=== PATIENT | female | born 1985 | race Caucasian/White ===

== ENCOUNTER 2016-12-30 09:52 | Emergency (ER) | payer OTHER ==
[~2016-12-30] VITALS: Ht 170.2 cm; Wt 111.4 kg
[2016-12-30 09:53] VITALS: BP 158/96; PULSE 87; RESP 16; O2SAT 100
[2016-12-30] MEDS ORDERED: Promethazine Inj 25 MG in 0.9% Sodium Chloride 50 ML IV ONE (10:05)
--- NOTE | 2016-12-30 10:17 | ED.REPORT ---
HPI-Headache Date of Service Dec 30, 2016 ED Provider: Carrillo Sheffield MD Pt is an otherwise healthy 31 year old female who presents to the ED complaining of intermittent headache onset 1 week ago. She c/o associated neck pain, bilateral eye pain, dizziness, spinning sensation, lightheadedness, mild numbness in fingers bilaterally, mild bilateral ear pain, vomiting, nausea, and chills. She denies fever, difficulty walking, and any other symptoms. Her pain is exacerbated with light and loud, sudden noises. She denies recent falls. Pt reports that she had difficulty sleeping secondary to the pain. Per pt, her headache was gradual in onset. Pt states that her nausea has only been present for the last 3 days. Her mother has a history of a brain tumor. Nursing Notes Stated Complaint: MIGRAINE Chief Complaint: Headache Nursing Notes Reviewed: Yes ([employer] not reconciled) Allergies: Coded Allergies: amoxicillin (Verified Adverse Reaction, Severe, Nausea,Vomiting, 12/30/16) Scheduled PRN Hydrocodone-Acetaminophen 5-325 mg (Hydrocodone-Acetaminophen 5-325 mg) 1 Each Tablet 1 TABLET PO Q4H PRN PRN For Pain Promethazine (Promethazine) 25 Mg Tablet 25 MG PO Q4H PRN PRN headache or nausea General Time Seen by MD: 10:05 Chief Complaint Headache Hx Obtained From: Patient Arrived By: Walk-in Sudden in Onset?: No Onset Occurred: 1 week ago Symptom Duration: Intermittent Location: : Retro orbital Quality: Painful Severity: Current: Moderate Severity: Maximum: Moderate Recent Healthcare: No recent doctor visit, No recent hospitalization Similar Sx Previous: No Past Medical History Past Medical History None reported - healthy Past Surgical History Reports: Appendectomy Family History Mother w/brain tumor Reports: Diabetes mellitus Smoking History Unknown if Ever Smoker Social History Alcohol Use: "Social" Drug Use: Denies drug use Other Social History: Good social support Ambulatory Status Independent Review of Systems Constitutional: Reports: Chills, Denies: Fever Eyes: Reports: Eye pain bilateral Ears / Nose / Throat: Reports: Earache bilateral GI: Reports: Nausea, Vomiting Musculoskeletal: Reports: Neck pain Neurologic: Reports: Dizziness, Headache, Lightheaded, Numbness (mildly in fingers), Spinning sensation, Denies: Problem walking Complete sys rev & neg: except as marked. Physical Exam Initial Vital Signs Vital Signs (First) Date Time Temp Pulse Resp B/P Pulse Ox O2 Delivery O2 Flow Rate FiO2 12/30/16 09:53 36.3 87 16 158/96 100 Room Air Initial VS: Reviewed, Vital signs normal (mild HTN) Respiratory: Breath sounds normal, Clear to auscultation, No respiratory distress Cardiovascular: Regular rate & rhythm, Heart sounds normal, Intact distal pulses Abdomen / GI: Soft, Non-tender Extremities: Vascular intact, Neuro intact Skin: Warm, Dry, No cyanosis Psychiatric: Mood/affect normal, Behavior normal General/Constitutional: Awake, Alert She is sitting in a darkened room wearing sunglasses and holding still. Head / Eyes: Atraumatic, Normocephalic, No nystagmus Neck: Atraumatic, Full range of motion Neurologic: Oriented X3, Speech NL, CN II - XII intact Interpretation & Diagnostics Lab Results Interpretation Result Diagram: 12/30/16 1021 12/30/16 1021 Test 12/30/16 10:21 12/30/16 11:50 12/30/16 14:19 12/30/16 14:20 White Blood Count 4.6th/mm3 (3.8-10.1) Red Blood Count 4.60mil/mm3 (3.90-5.20) Hemoglobin 13.9g/dL (12.0-15.6) Hematocrit 40.0% (35.0-46.0) Mean Corpuscular Volume 87.0fL (81-100) Mean Corpuscular Hemoglobin 30.2pg (27.0-35.0) Mean Corpuscular Hemoglobin Concent 34.8% (32.0-37.0) Red Cell Distribution Width 11.9% (12.3-15.4) Platelet Count 238bil/L (150-400) Neutrophils (%) (Auto) 55.0% (40-74) Lymphocytes (%) (Auto) 33.2% (14-46) Monocytes (%) (Auto) 8.6% (4-12) Eosinophils (%) (Auto) 2.6% (0-5) Basophils (%) (Auto) 0.4% (0-3) Prothrombin Time 10.0sec (8.1-12.5) Prothromb Time International Ratio 0.94ratio Activated Partial Thromboplast Time 28.3sec (22.8-33.0) Sodium Level 141mEq/L (134-144) Potassium Level 4.0mEq/L (3.5-5.2) Chloride Level 105mEq/L (97-108) Carbon Dioxide Level 21mmol/L (18-29) Blood Urea Nitrogen 10mg/dL (6-20) Creatinine 0.66mg/dL (0.57-1.00) Estimat Glomerular Filtration Rate 152mL/min (>59) Glucose Level 100mg/dL (60-99) Calcium Level 9.6mg/dL (8.5-10.1) Total Bilirubin 0.3mg/dL (0.0-1.2) Aspartate Amino Transf (AST/SGOT) 29U/L (0-50) Alanine Aminotransferase (ALT/SGPT) 44U/L (0-32) Alkaline Phosphatase 65U/L (25-150) Total Protein 8.0g/dL (6.4-8.4) Albumin 4.4g/dL (3.4-5.0) Human Chorionic Gonadotropin, Qual 0.500 (Negative) Hold Urine Received (Received) CSF Glucose 59mg/dL (45-90) CSF Total Protein 39mg/dL (15-45) CSF Appearance Clear (CLEAR) CSF Color Colorless (COLORLESS) CSF WBC 5/mm3 (0-5) CSF RBC 0/mm3 CSF Mononuclear WBCs % CSF Polynuclear WBCs % CSF Other Cells Lab Results Interpretation: CBC normal CMP normal CSF normal negative CT Head Interpretation IMPRESSION: Negative head CT. No acute intracranial hemorrhage. Dictated by: Wicho Dawson M.D. on 12/30/2016 at 10:51 Study: Head CT no contrast Interpretation / Wet Read by: Interpret - Radiologist Procedures Lumbar Puncture Time: 13:42 Procedure Performed by: ED physician Consent / Setup / Site Prep: Informed consent provided, Consent from patient , Time-out performed, Hand hygiene observed, Stand sterile technique, Sterile drapes applied, Patient sitting up Skin Preparation Agent: Betadine Local Anesthesia: Bupivacaine 0.5% Inserted Needle at: L4 L5 Second Attempt at: L4 L5 Post-Procedure / Complications: Antibiotic oint applied, Dressing applied, No complications, Tolerated procedure well, Patient stable Re-Eval/Medical Decision Med Decision/Clinical Course This is a 31-year-old female presents with a 7 days of worsening headache, slow onset that is now the worst of her life. She was referred in for further evaluation by urgent care. No relief from OTC meds, no history of trauma, no clear infectious symptoms there is a little bit of neck soreness. She has had no rashes or exanthems, ill contact or travel There is positive photophobia, positive nausea and vomiting. On exam she sitting in a darkened room wearing sunglasses, but has no focal deficits. She does appear comfortable. A CT of the brain at this point was indicated, and was obtained and negative. Informed consent was obtained and all lumbar puncture form that revealed normal CSF without signs of subarachnoid or meningitis such as viral etiology. She received promethazine, Benadryl, Toradol, and ultimately a small dose of Dilaudid-ultimately symptoms markedly improved and resolved. Plan dangerous etiology has not been established. Discharge promethazine, and I written a prescription for #10 hydrocodone for when necessary use as well after discussion with the patient. She is discharged in good condition. Routine precautions were reviewed. Source of Hx: Old records Re-Evaluation/Progress #1: Time of Eval: 13:12 Re-Evaluation/Progress Note: Pt rechecked. Informed pt of need for lumbar puncture. Pt agrees with plan for lumbar punture. All questions addressed. Re-Evaluation/Progress #2: Time of Eval: 13:42 Re-Evaluation/Progress Note: Pt rechecked. Performed lumbar puncture with pt's consent. All questions addressed. Re-Evaluation/Progress #3: Time of Eval: 15:51 Re-Evaluation/Progress Note: Pt rechecked. Informed pt of plan for discharge. Pt understands and agrees with plan for discharge. F/U instructions and RTER warnings given. All questions addressed. Differential Diagnosis: Positive: Headache, Negative: Carbon monoxide toxicity, Carotid artery dissection, Cerebellar ischemia, Cerebrovascular accident, Closed head injury, Fever-induced, Headache , muscular contra, Headache, post LP, Headache, post-traumatic, Hemorrhage, cerebellar, Hemorrhage, intracerebral, Hemorrhage, subarachnoid, Hemorrhage, subdural, Intracranial abscess, Meningitis, Preeclampsia, Sinusitis, Temporal arteritis, Trigeminal neuralgia Counseled Regarding: Diagnosis, Lab results, Need for follow-up, When/why to return to ED Discharge & Departure Impression: Primary Impression: Headache Headache type: unspecified Headache chronicity pattern: unspecified pattern Intractability: not intractable Qualified Code: R51 - Headache Disposition: Home Discharge Condition All VS Reviewed: Yes Condition: Stable Additional Instructions: 1. A dangerous cause of the headache was not identified. Her CT scan, spinal fluid and blood tests were normal. 2. Rest tonight. 3. Take promethazine 25mg up to every 4 hours if needed for nausea, headache, or mild vertigo. (Causes mild drowsiness.) 4. Continue ibuprofen if needed up to every 6 hours (400-600mg) 5. If needed take hydrocodone/APAP 5/325 1-2 tabs up to every 6 hours. With this medication contains narcotic and cause some drowsiness. No driving for at least 4-6 hours of taking. Use sparingly, and only if needed. 6. Return if new or worsening symptoms Referrals: Miriam Gudino MD [facility] Scribe Attestation Portions of this note were transcribed by Kayla Cross. I, Dr. Sheffield personally performed the history, physical exam and medical decision-making; I reviewed and confirmed the accuracy of the information in the transcribed note. Signed by: Kyree Morejon, 12/30/16. copies to: Miriam Gudino MD; [facility] Carrillo Sheffield MD Dec 30, 2016 10:17 Kayla Hull Dec 30, 2016 10:24
[2016-12-30 10:29] LABS: BASOPHILS % (AUTO) 0.4 % (0-3); EOSINOPHILS % (AUTO) 2.6 % (0-5); MONOCYTES % (AUTO) 8.6 % (4-12); Mean Corpuscular Hemoglobin 30.2 pg (27.0-35.0); Platelet Count 238 bil/L (150-400)
[2016-12-30 10:44] LABS: INR 0.94 ratio
--- NOTE | 2016-12-30 11:54 | DRSVH ---
PROCEDURE: CT BRAIN WITHOUT CONTRAST ([id number]) INDICATIONS: Headache. TECHNIQUE: Noncontrast 4.5 mm thick angled axial sections acquired from the foramen magnum to the vertex, with c oronal reformats. COMPARISON: None. FINDINGS: Image quality: Excellent. CSF spaces: Basal cisterns are patent. No extra-axial fluid collections. Ventricles are normal in size and shape. Brain: No midline shift. No intracranial masses or hemorrhage. Rios-white matter interface is norm al. Skull and face: Calvarium and visualized facial bones are intact, without suspicious lesions. Sinuses: Visualized sinuses and mastoids are clear. IMPRESSION: Negative head CT. No acute intracranial hemorrhage. Dictated by: Wicho Dawson M.D. on 12/30/2016 at 10:51 Approved by: Wicho Dawson M.D. on 12/30/2016 at 10:52
[2016-12-30 12:17] VITALS: BP 145/96; PULSE 68; RESP 20; O2SAT 100
[2016-12-30] MEDS ORDERED: HYDROmorphone 0.5 mg/0.5 mL iSecure Syringe IVPUSH PRN (12:40)
[2016-12-30] MEDS ORDERED: ProchlorPERazine 5 mg/mL 2 mL Inj IVPUSH ONE (13:15)
[2016-12-30] MEDS ORDERED: Bupivacaine 0.5% 50 mL Inj INFILTRATE ONE (13:35)
[2016-12-30] MEDS ORDERED: Bupivacaine-MPF 0.5% 30 mL Inj ONE (13:38)
[2016-12-30 14:45] LABS: COLOR,CSF COLORLESS (COLORLESS); WHITE BLOOD CELL,CSF 5 /mm3 (0-5)
[2016-12-30 14:47] LABS: APPEARANCE,CSF CLEAR (CLEAR)
[2016-12-30 14:57] VITALS: BP 130/79; PULSE 74; O2SAT 100
[2016-12-30 14:57] LABS: APPEARANCE,CSF CLEAR (CLEAR); COLOR,CSF COLORLESS (COLORLESS); WHITE BLOOD CELL,CSF 3 /mm3 (0-5)
[2016-12-30] MEDS ORDERED: HYDR-4003 PO (16:00)
[2016-12-30] MEDS ORDERED: PROM25TA14 PO (16:00)
[2016-12-30 16:32] VITALS: BP 137/75; PULSE 85; RESP 20; O2SAT 100
== END 2016-12-30 16:33 | disposition home or self-care (01) ==
LOC: SED 09:52
DX: R51 Headache (principal); Z88.1 Allergy status to other antibiotic agents
CPT/HCPCS: 36415; 62270; 70450; 80053; 81025; 82945; 84155; 84703; 85025; 85610; 85730; 87070; 87205; 89051; 96374; 96375; 96376; 99285; J0780; J1170; J1200; J1885; J2250; J2550